=== PATIENT | male | born 1935 | race Caucasian/White ===

== ENCOUNTER 2018-03-15 13:50 | Observation (INO) ==
--- NOTE | 2018-03-15 14:09 | Emergency Department Note ---
Disposition Clinical Impression: Confusion Fall Qualifiers: Encounter type: initial encounter Qualified Code(s): W19.XXXA - Unspecified fall, initial encounter Dementia Qualifiers: Dementia type: unspecified type Dementia behavioral disturbance: without behavioral disturbance Qualified Code(s): F03.90 - Unspecified dementia without behavioral disturbance Disposition: Admitted As Inpatient Condition: Fair Referrals: Kenya Barber FAMILY RESOURCE MANAGEMENT SPECIALIST [Primary Care Provider] - Forms: ED Satisfaction Letter Time of Disposition: 15:50 Fall HPI - General Chief Complaint: ED Fall Stated Complaint: "fell,head injury on coumadin, sent from pcp" Time Seen by Provider: 03/15/18 13:55 Source: patient, family Mode of arrival: ambulatory Limitations: altered mental status Nursing Notes Reviewed: Yes Vital Signs Reviewed: Yes - History of Present Illness HPI Narrative: 82-year-old male with history of Parkinson's, dementia anticoagulated due to history of blood clots presents for evaluation of fall, head injury and confusion. Patient's history is provided via the at bedside. states the patient had an unwitnessed fall around midmorning around 9:30. States that the patient was found in the laundry room. Patient was up at that time but agent did strike his head. Patient's time of provided history given his dementia. states the patient has been increasingly confused over the past 24 hours prior to the fall. States that the patient has been also having hallucinations. states that the patient presumably hit his head but has not been complaining of any specific complaints. Patient also has not had any episodes of emesis. Patient's states she does live at home alone with him is the primary caregiver. states that the patient has had recent change in medications which includes introduction of Cymbalta over the weekend. Denies history of heart attacks, congestive heart failure strokes. - Related Data Home Medications Medication Instructions Recorded Confirmed Carbidopa/Levodopa 25/100 [Sinemet 1 tab PO BID 03/15/18 03/15/18 25/100] Carbidopa/Levodopa 1.5 tab PO 1400 03/15/18 03/15/18 [Carbidopa-Levodopa 25-100 Tab] DULoxetine [Cymbalta] 30 mg PO BID 03/15/18 03/15/18 Donepezil [Aricept] 10 mg PO HS 03/15/18 03/15/18 Finasteride [Proscar] 5 mg PO DAILY 03/15/18 03/15/18 PHENobarbital [Phenobarbital] 32.4 mg PO BID 03/15/18 03/15/18 Tamsulosin HCl [Flomax] 0.4 mg PO DAILY 03/15/18 03/15/18 Warfarin [Coumadin] 5 mg PO SUMOTUWETHFR 03/15/18 03/15/18 Warfarin [Coumadin] 7.5 mg PO SA 03/15/18 03/15/18 Allergies Allergy/AdvReac Type Severity Reaction Status Date / Time No Known Allergies Allergy Verified 07/31/17 17:40 Limitations: ROS unobtainable due to patients medical condition Fall PMH - Past Medical History Medical history: Reports: DVT, dementia, seizures, other Psychiatric history: Reports: no psych history - Social History Smoking Status: Never smoker Alcohol use: Reports: none Drug use: Reports: none Physical Exam - General Limitations: altered mental status, physical limitation General appearance: alert, in no apparent distress - Head Head exam: atraumatic, normocephalic, normal inspection - Eye Eye exam: Present: normal appearance, PERRL, EOMI - ENT ENT exam: normal exam - Neck Neck exam: Present: normal inspection. Absent: tenderness - Chest Chest inspection: Present: normal inspection, symmetric chest wall rise - Respiratory Respiratory exam: Present: normal lung sounds bilaterally. Absent: prolonged expiratory phase - Cardiovascular Cardiovascular exam: Present: regular rate, normal rhythm. Absent: systolic murmur - Abdominal Exam Abdominal exam: Present: soft, Non-Tender - Extremities Exam Extremities exam: Present: normal inspection. Absent: pedal edema - Back Exam Back exam: Present: normal inspection, full ROM. Absent: tenderness - Neurological Exam Neurological exam: Present: alert, CN II-XII intact. Absent: oriented X3 - Expanded Neurological Exam Motor strength - LUE: 5/5 Motor strength - RUE: 5/5 Motor strength - LLE: 5/5 Motor strength - RLE: 5/5 Coma Scale Eye Opening: Spontaneous Coma Scale Motor Response: Obeys Commands Coma Scale Verbal Response: Confused Coma Scale Total: 14 - Skin Skin exam: Present: warm, dry, intact, normal color Course Course Narrative: Patient seen and examined. Will get a stat CT of the head and cervical spine. Patient also had an INR. This morning which was 2.8. Will repeat those labs including CBC, lites lites and a UA. Patient also get a chest x-ray troponin. Given the patient's worsening confusion and the history provided with patient's been the primary caregiver not able to care for the patient with worsening dementia, confusion or recurrent falls anticoagulated patient will likely require admission. - Reevaluation(s) Reevaluation #1: Patient seen and examined. Patient's mental status is unchanged. Discussed plan of care with the . Given the concerns of fall anticoagulated with worsening dementia and confusion with no significant primary support at home the being the primary caregiver patient will be admitted to the hospital service. Time: 16:04 Vital Signs Temperature 98.3 F 03/15/18 13:53 Pulse Rate 87 03/15/18 13:53 Respiratory Rate 18 03/15/18 13:53 Blood Pressure 137/83 03/15/18 13:53 O2 Sat by Pulse Oximetry 92 03/15/18 13:53 Temperature 98.3 F 03/15/18 14:00 Pulse Rate 51 03/15/18 14:55 Respiratory Rate 18 03/15/18 14:55 Blood Pressure 145/83 03/15/18 14:55 O2 Sat by Pulse Oximetry 97 03/15/18 14:55 Oxygen Delivery Oxygen Delivery Room Air Fall - MDM Narrative Medical decision making narrative: Patient presented for concerns of a fall on Coumadin. at bedside provided the history as the patient does have history of dementia. Patient review systems is not able to be obtained. states that the patient had an unwitnessed fall. states patient has been increasingly confused over the past 24 hours with hallucinations. is concerned about the patient's fall risk as well as appropriate care at home without any assistance. Patient had EKG chest x-ray as well as basic labs. Patient also had a stat head CT and cervical spine CT which showed no acute abnormalities. Given the patient's history of anticoagulation with worsening confusion the patient will be admitted to the hospital service. - Lab Data Lab results reviewed: Yes I reviewed the patient's lab results. Result diagrams: 03/15/18 14:15 03/15/18 14:15 Lab Results 03/15/18 03/15/18 03/15/18 Range/Units 14:05 14:15 14:15 WBC 5.3 (4.3-11.1) K/mcL RBC 4.79 (4.19-5.50) M/mcL Hgb 15.5 (12.9-16.9) g/dL Hct 43.8 (37.5-50.1) % MCV 91.4 (83.0-100.0) fL MCH 32.4 (28.0-33.3) pg MCHC 35.4 (31.6-35.5) g/dL RDW 12.6 (11.5-14.5) % Plt Count 185 (140-400) K/mcL MPV 9.0 L (9.4-12.4) fL Immature Gran % 0.2 (0-4) % Seg Neutrophils % 57.6 % Lymphocytes % 29.5 % Monocytes % 9.5 % Eosinophils % 2.1 % Basophils % 1.1 % Neutrophils # 3.0 (1.6-8.9) K/mcL Lymphocytes # 1.6 (0.6-4.6) K/mcL Monocytes # 0.5 (0.0-1.3) K/mcL Eosinophils # 0.1 (0.0-0.6) K/mcL Basophils # 0.1 (0.0-0.2) K/mcL PT 32.4 H (9.4-12.1) Seconds INR 2.9 Sodium 137 (136-145) mEq/L Potassium 4.1 (3.5-5.1) mEq/L Chloride 106 (98-107) mEq/L Carbon Dioxide 26 (23-29) mEq/L BUN 16 (8-23) mg/dL Creatinine 1.13 (0.70-1.30) mg/dL Est GFR ( Amer) > 60 (> 60) Est GFR (Non-Af Amer) > 60 (> 60) BUN/Creatinine Ratio 14 (6-26) Glucose 92 (70-105) mg/dL Calculated Osmolality 285 (280-300) Calcium 9.7 (8.6-10.3) mg/dL Troponin I < 0.03 (< 0.04) ng/mL Urine Color (Yellow) Urine Clarity (Clear) Urine pH (5.0-8.0) pH Units Ur Specific [place] (1.010-1.025) Urine Protein (Neg-Trace) mg/dL Urine Glucose (UA) (Normal) mg/dL Urine Ketones (Negative) mg/dL Urine Blood (Negative) Urine Nitrite (Negative) Urine Bilirubin (Negative) Urine Urobilinogen (Normal) mg/dL Ur Leukocyte Esterase (Negative) 03/15/18 Range/Units 14:55 WBC (4.3-11.1) K/mcL RBC (4.19-5.50) M/mcL Hgb (12.9-16.9) g/dL Hct (37.5-50.1) % MCV (83.0-100.0) fL MCH (28.0-33.3) pg MCHC (31.6-35.5) g/dL RDW (11.5-14.5) % Plt Count (140-400) K/mcL MPV (9.4-12.4) fL Immature Gran % (0-4) % Seg Neutrophils % % Lymphocytes % % Monocytes % % Eosinophils % % Basophils % % Neutrophils # (1.6-8.9) K/mcL Lymphocytes # (0.6-4.6) K/mcL Monocytes # (0.0-1.3) K/mcL Eosinophils # (0.0-0.6) K/mcL Basophils # (0.0-0.2) K/mcL PT (9.4-12.1) Seconds INR Sodium (136-145) mEq/L Potassium (3.5-5.1) mEq/L Chloride (98-107) mEq/L Carbon Dioxide (23-29) mEq/L BUN (8-23) mg/dL Creatinine (0.70-1.30) mg/dL Est GFR ( Amer) (> 60) Est GFR (Non-Af Amer) (> 60) BUN/Creatinine Ratio (6-26) Glucose (70-105) mg/dL Calculated Osmolality (280-300) Calcium (8.6-10.3) mg/dL Troponin I (< 0.04) ng/mL Urine Color Yellow (Yellow) Urine Clarity Clear (Clear) Urine pH 5.5 (5.0-8.0) pH Units Ur Specific [place] 1.020 (1.010-1.025) Urine Protein Negative (Neg-Trace) mg/dL Urine Glucose (UA) Normal (Normal) mg/dL Urine Ketones Negative (Negative) mg/dL Urine Blood Negative (Negative) Urine Nitrite Negative (Negative) Urine Bilirubin Negative (Negative) Urine Urobilinogen Normal (Normal) mg/dL Ur Leukocyte Esterase Negative (Negative) - Radiology Data Radiology results reviewed: Yes I reviewed the patient's radiology results. Cervical Spine CT 03/15/18 14:04 IMPRESSION: No acute abnormality of the cervical spine. D/ / Mian Nunes MD / Mian Nunes MD Interpreting Provider: Mian Nunes MD Head CT 03/15/18 14:04 IMPRESSION: Stable CT brain with no acute intracranial abnormality and chronic ischemic/senescent changes as described. D/ / Elke Cuadra MD / Elke Cuadra MD Interpreting Provider: Elke Cuadra MD Chest X-Ray 03/15/18 14:05 IMPRESSION: Stable right middle lobe partially calcified opacity, likely due to scarring from prior infection/inflammation. No acute cardiopulmonary disease. D/ / Rich Bassett MD / Rich Bassett MD Interpreting Provider: Rich Bassett MD - EKG Data EKG attestation: Yes I reviewed and interpreted this EKG. EKG shows normal: sinus rhythm Rate: bradycardia Rhythm: NSR [place]/QRS: normal T wave inversions noted in: aVR Interpretation: no acute changes, nonspecific ST-T wave changes S.B.A.RPramod - S.B.ALee Situation: Demographics Background: Presenting Complaint Assessment: Vital Signs, Course and respsone to treatment, Patient/Family Expectation Recommendation: Barrier(s) to disposition, Recommendation based on pending studies, treatments, or consults S.B.ALee Report Given to: Dr. Beatriz Erwin Time: 16:04
--- NOTE | 2018-03-15 14:21 | Emergency Department Note ---
Disposition Clinical Impression: Confusion, Dementia Fall Qualifiers: Encounter type: initial encounter Qualified Code(s): W19.XXXA - Unspecified fall, initial encounter Disposition: Admitted As Inpatient Condition: Fair General Adult HPI - General Chief complaint: ED Fall Stated complaint: "fell,head injury on coumadin, sent from pcp" Time Seen by Provider: 03/15/18 13:55 Source: patient, family Mode of arrival: ambulatory Limitations: altered mental status, physical limitation - History of Present Illness Pain Scale: 0 - Related Data Home Medications Medication Instructions Recorded Confirmed Carbidopa/Levodopa 25/100 [Sinemet 1 tab PO BID 03/15/18 03/15/18 25/100] Carbidopa/Levodopa 1.5 tab PO 1400 03/15/18 03/15/18 [Carbidopa-Levodopa 25-100 Tab] DULoxetine [Cymbalta] 30 mg PO BID 03/15/18 03/15/18 Donepezil [Aricept] 10 mg PO HS 03/15/18 03/15/18 Finasteride [Proscar] 5 mg PO DAILY 03/15/18 03/15/18 PHENobarbital [Phenobarbital] 32.4 mg PO BID 03/15/18 03/15/18 Tamsulosin HCl [Flomax] 0.4 mg PO DAILY 03/15/18 03/15/18 Warfarin [Coumadin] 5 mg PO SUMOTUWETHFR 03/15/18 03/15/18 Warfarin [Coumadin] 7.5 mg PO SA 03/15/18 03/15/18 Allergies Allergy/AdvReac Type Severity Reaction Status Date / Time No Known Allergies Allergy Verified 07/31/17 17:40 Past Medical History - Past Medical History Medical history: Reports: DVT, dementia, seizures, other Psychiatric history: Reports: no psych history - Social History Smoking Status: Never smoker Smokeless Tobacco Status: No Alcohol use: Reports: none Drug use: Reports: none Physical Exam - General Limitations: altered mental status, physical limitation General appearance: alert, in no apparent distress Course Vital Signs Temperature 98.3 F 03/15/18 13:53 Pulse Rate 87 03/15/18 13:53 Respiratory Rate 18 03/15/18 13:53 Blood Pressure 137/83 03/15/18 13:53 O2 Sat by Pulse Oximetry 92 03/15/18 13:53 Temperature 97.5 F L 03/16/18 07:12 Pulse Rate 50 03/16/18 07:12 Respiratory Rate 18 03/16/18 07:12 Blood Pressure 146/92 03/16/18 07:12 O2 Sat by Pulse Oximetry 97 03/16/18 07:12 Oxygen Delivery Oxygen Delivery Room Air Medical Decision Making - Lab Data Result diagrams: 03/15/18 14:15 03/15/18 14:15 Lab Results 03/15/18 03/15/18 03/15/18 Range/Units 14:05 14:15 14:15 WBC 5.3 (4.3-11.1) K/mcL RBC 4.79 (4.19-5.50) M/mcL Hgb 15.5 (12.9-16.9) g/dL Hct 43.8 (37.5-50.1) % MCV 91.4 (83.0-100.0) fL MCH 32.4 (28.0-33.3) pg MCHC 35.4 (31.6-35.5) g/dL RDW 12.6 (11.5-14.5) % Plt Count 185 (140-400) K/mcL MPV 9.0 L (9.4-12.4) fL Immature Gran % 0.2 (0-4) % Seg Neutrophils % 57.6 % Lymphocytes % 29.5 % Monocytes % 9.5 % Eosinophils % 2.1 % Basophils % 1.1 % Neutrophils # 3.0 (1.6-8.9) K/mcL Lymphocytes # 1.6 (0.6-4.6) K/mcL Monocytes # 0.5 (0.0-1.3) K/mcL Eosinophils # 0.1 (0.0-0.6) K/mcL Basophils # 0.1 (0.0-0.2) K/mcL PT 32.4 H (9.4-12.1) Seconds INR 2.9 Sodium 137 (136-145) mEq/L Potassium 4.1 (3.5-5.1) mEq/L Chloride 106 (98-107) mEq/L Carbon Dioxide 26 (23-29) mEq/L BUN 16 (8-23) mg/dL Creatinine 1.13 (0.70-1.30) mg/dL Est GFR ( Amer) > 60 (> 60) Est GFR (Non-Af Amer) > 60 (> 60) BUN/Creatinine Ratio 14 (6-26) Glucose 92 (70-105) mg/dL Calculated Osmolality 285 (280-300) Calcium 9.7 (8.6-10.3) mg/dL Troponin I < 0.03 (< 0.04) ng/mL Urine Color (Yellow) Urine Clarity (Clear) Urine pH (5.0-8.0) pH Units Ur Specific [place] (1.010-1.025) Urine Protein (Neg-Trace) mg/dL Urine Glucose (UA) (Normal) mg/dL Urine Ketones (Negative) mg/dL Urine Blood (Negative) Urine Nitrite (Negative) Urine Bilirubin (Negative) Urine Urobilinogen (Normal) mg/dL Ur Leukocyte Esterase (Negative) 03/15/18 Range/Units 14:55 WBC (4.3-11.1) K/mcL RBC (4.19-5.50) M/mcL Hgb (12.9-16.9) g/dL Hct (37.5-50.1) % MCV (83.0-100.0) fL MCH (28.0-33.3) pg MCHC (31.6-35.5) g/dL RDW (11.5-14.5) % Plt Count (140-400) K/mcL MPV (9.4-12.4) fL Immature Gran % (0-4) % Seg Neutrophils % % Lymphocytes % % Monocytes % % Eosinophils % % Basophils % % Neutrophils # (1.6-8.9) K/mcL Lymphocytes # (0.6-4.6) K/mcL Monocytes # (0.0-1.3) K/mcL Eosinophils # (0.0-0.6) K/mcL Basophils # (0.0-0.2) K/mcL PT (9.4-12.1) Seconds INR Sodium (136-145) mEq/L Potassium (3.5-5.1) mEq/L Chloride (98-107) mEq/L Carbon Dioxide (23-29) mEq/L BUN (8-23) mg/dL Creatinine (0.70-1.30) mg/dL Est GFR ( Amer) (> 60) Est GFR (Non-Af Amer) (> 60) BUN/Creatinine Ratio (6-26) Glucose (70-105) mg/dL Calculated Osmolality (280-300) Calcium (8.6-10.3) mg/dL Troponin I (< 0.04) ng/mL Urine Color Yellow (Yellow) Urine Clarity Clear (Clear) Urine pH 5.5 (5.0-8.0) pH Units Ur Specific [place] 1.020 (1.010-1.025) Urine Protein Negative (Neg-Trace) mg/dL Urine Glucose (UA) Normal (Normal) mg/dL Urine Ketones Negative (Negative) mg/dL Urine Blood Negative (Negative) Urine Nitrite Negative (Negative) Urine Bilirubin Negative (Negative) Urine Urobilinogen Normal (Normal) mg/dL Ur Leukocyte Esterase Negative (Negative) Attestation Statement - Attestation Attestation: I examined this patient and my medical decision-making was reviewed with the HOME SALES CONSULTANT/PA/Advanced Practice Nurse/Resident Physician. I agree with the documented findings, disposition and treatment plan as described except to the extent set forth below. I did see the patient is spoke with him and his and is resting comfortably in the cart. Was found on the ground, he is anticoagulated with INR 2.8 as of this morning. Head CT is pending. The patient does have significant dementia. He does not know the year and when I asked him who was standing with him he said that it was his mother and fact it was his 1331 I did review the EKG shows sinus bradycardia with a rate of 51 without acute ischemic change
[2018-03-15 15:14] LABS: Basophils # 0.1 K/mcL (0.0-0.2); Basophils % 1.1 %; Eosinophils # 0.1 K/mcL (0.0-0.6); Eosinophils % 2.1 %; Hematocrit 43.8 % (37.5-50.1); Hemoglobin 15.5 g/dL (12.9-16.9); Immature Granulocytes % 0.2 % (0-4); Lymphocytes # 1.6 K/mcL (0.6-4.6); Lymphocytes % 29.5 %; Mean Corpuscular HGB Conc 35.4 g/dL (31.6-35.5); Mean Corpuscular Hemoglobin 32.4 pg (28.0-33.3); Mean Corpuscular Volume 91.4 fL (83.0-100.0); Monocytes # 0.5 K/mcL (0.0-1.3); Monocytes % 9.5 %; Platelet Count 185 K/mcL (140-400); Red Blood Count 4.79 M/mcL (4.19-5.50); Red Cell Distribution Width 12.6 % (11.5-14.5); Segmented Neutrophils % 57.6 %
[2018-03-15 15:21] LABS: INR 2.9; Prothrombin Time 32.4 Seconds (9.4-12.1)
[2018-03-15 15:23] LABS: Bilirubin,Urine Negative (Negative); Blood,Urine Negative (Negative); Clarity,Urine Clear (Clear); Color,Urine Yellow (Yellow); Glucose,Urine (UA) Normal (Normal); Ketones,Urine Negative (Negative); Leukocyte Esterase,Urine Negative (Negative); Nitrite,Urine Negative (Negative); PH,Urine 5.5 pH Units (5.0-8.0); Protein,Urine Negative (Neg-Trace); Urobilinogen,Urine Normal (Normal)
[2018-03-15 15:34] LABS: BUN/Creatinine Ratio 14 (6-26); Blood Urea Nitrogen 16 mg/dL (8-23); Calcium 9.7 mg/dL (8.6-10.3); Carbon Dioxide 26 mEq/L (23-29); Chloride 106 mEq/L (98-107); Glucose 92 mg/dL (70-105); Osmolality,Calculated 285 (280-300); Potassium 4.1 mEq/L (3.5-5.1); Sodium 137 mEq/L (136-145); Troponin I < 0.03 ng/mL (< 0.04); eGFR For African Americans > 60 (> 60); eGFR For Non-African Americans > 60 (> 60)
[2018-03-15] MEDS ORDERED: Acetaminophen 325 MG TABLET PO PRN (16:35)
[2018-03-15] MEDS ORDERED: Naloxone 0.4 MG/ML INJ IVP PRN (16:35)
--- NOTE | 2018-03-15 16:40 | Internal Med History&Physical ---
Date of Encounter: 03/15/18 Time of Encounter: 16:38 Internal Medicine - H&P: HPI Chief complaint: Confusion Admitted From: Emergency Dept Plans for Post Hospital Care: Home History of present illness: Mr. 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 The patient was at his primary care's office for evaluation after fall this morning which was unwitnessed. She believes that he possibly lost his balance and fell to the floor hitting his forehead. No loss of consciousness. She says for the last 24 hours he has showed signs of confusion however she states that he baseline is only alert and oriented 1. He was started on Cymbalta last week by Dr. Red. He started taking the medication 5 days ago. No fevers or chills reported. No other complaints. She took him to his primary care physician who wanted to get him evaluated with a CT at some point. The patient ended up in our ED where he had workup that was unremarkable in terms of labs. CT head showed no acute findings. CT cervical spine was with nothing acute. Due to the confusion and recent fall, the ED did not feel comfortable sending the patient back home. I spoke to his who would like him to get evaluated by physical therapy. She is not opposed to the idea of placement however she would prefer him to be home. The patient is cane dependent. Past Med Surg Social Fam HX - Past Medical History Medical history: DVT, dementia, seizures, other Additional medical history: no seizures since 1977 Psychiatric history: no psych history - Past Surgical History Additional surgical history: knee sx. back sx x3 - Social History Smoking Status: Never smoker Smokeless Tobacco Status: No Alcohol use: none Drug use: none Internal Medicine - H&P: Meds Carbidopa/Levodopa 25/100 [Sinemet 25/100] 1 tab PO BID 03/15/18 [History] Carbidopa/Levodopa [Carbidopa-Levodopa 25-100 Tab] 1.5 tab PO 1400 03/15/18 [ History] DULoxetine [Cymbalta] 30 mg PO BID 03/15/18 [History] Donepezil [Aricept] 10 mg PO HS 03/15/18 [History] Finasteride [Proscar] 5 mg PO DAILY 03/15/18 [History] PHENobarbital [Phenobarbital] 32.4 mg PO BID 03/15/18 [History] Tamsulosin HCl [Flomax] 0.4 mg PO DAILY 03/15/18 [History] Warfarin [Coumadin] 5 mg PO SUMOTUWETHFR 03/15/18 [History] Warfarin [Coumadin] 7.5 mg PO SA 03/15/18 [History] 3 Allergy/AdvReac Type Severity Reaction Status Date / Time No Known Allergies Allergy Verified 07/31/17 17:40 ROS unobtainable: due to mental status All Systems PM: A 10-system review of systems was performed and is negative for pertinent findings except as documented above in the HPI. - Constitutional Vitals: Temp Pulse Resp BP Pulse Ox 98.3 F 51 18 145/83 97 03/15/18 14:00 03/15/18 14:55 03/15/18 14:55 03/15/18 14:55 03/15/18 14:55 Exam: GEN: NAD, alert and oriented 1, only to self. HEENT: AT, NC, No cyanosis, oral mucosa is moist, No JVD Lymphatics: No lymphadenoapthy Eyes: Extrocular muscles intact, anicteric CVS:RRR. S1, S2, No m/r/g RESP: CTAB ABD: Soft, NT, ND, +BS EXT: No edema, No rashes, 2+ DP NEURO: Resting tremors, Nonfocal, CN II-XII intact, No focal motor or sensory deficits Psych: Cooperative, Not anxious or depressed Internal Med - H&P Results - Labs CBC & Chem 7: 03/15/18 14:15 03/15/18 14:15 Labs: Short CBC 03/15/18 Range/Units 14:15 WBC 5.3 (4.3-11.1) K/mcL Hgb 15.5 (12.9-16.9) g/dL Hct 43.8 (37.5-50.1) % Plt Count 185 (140-400) K/mcL Neutrophils # 3.0 (1.6-8.9) K/mcL BMP 03/15/18 14:15 Sodium 137 Potassium 4.1 Chloride 106 Carbon Dioxide 26 BUN 16 Creatinine 1.13 Glucose 92 Calcium 9.7 Cardiac Enzymes 03/15/18 Range/Units 14:15 Troponin I < 0.03 (< 0.04) ng/mL Urine 03/15/18 Range/Units 14:55 Urine Color Yellow (Yellow) Urine Clarity Clear (Clear) Urine pH 5.5 (5.0-8.0) pH Units Ur Specific [place] 1.020 (1.010-1.025) Urine Protein Negative (Neg-Trace) mg/dL Urine Glucose (UA) Normal (Normal) mg/dL - Impressions ITS Impressions Cervical Spine CT 03/15/18 14:04 IMPRESSION: No acute abnormality of the cervical spine. D/ / Mian Nunes MD / Mian Nunes MD Interpreting Provider: Mian Nunes MD Head CT 03/15/18 14:04 IMPRESSION: Stable CT brain with no acute intracranial abnormality and chronic ischemic/senescent changes as described. D/ / Elke Cuadra MD / Elke Cuadra MD Interpreting Provider: Elke Cuadra MD Chest X-Ray 03/15/18 14:05 IMPRESSION: Stable right middle lobe partially calcified opacity, likely due to scarring from prior infection/inflammation. No acute cardiopulmonary disease. D/ / Rich Bassett MD / Rich Bassett MD Interpreting Provider: Rich Bassett MD - Assessment and plan (1) Confusion Current Visit: Yes Status: Acute Assessment and plan: I think this is just worsening dementia with its Parkinson's dementia or Alzheimer's dementia. The patient recently started on Cymbalta which could be contributing however the states that he has been confused and worsening for the last 5 years or so. He at times does not recognize her and he demonstrated that while I was in the room. He thought his was his mother. We will check TSH and B12 for now. PTOT evaluation. (2) Fall Current Visit: Yes Status: Acute Assessment and plan: Unwitnessed but likely to be due to unbalanced gait from his Parkinson's. CT head no acute findings. We will get PTOT to see the patient. Monitor him neurologically while hospitalized. His is not sure if she would like him to be placed however she will await PT and OT's evaluation and recommendations. She would prefer if he comes back home. Qualifiers: Encounter type: initial encounter Qualified Code(s): W19.XXXA - Unspecified fall, initial encounter (3) H/O deep venous thrombosis Current Visit: Yes Status: Acute Assessment and plan: On Coumadin (4) Depression Current Visit: Yes Status: Acute Assessment and plan: Continue Cymbalta Qualifiers: Depression Type: unspecified Qualified Code(s): F32.9 - Major depressive disorder, single episode, unspecified (5) Parkinson disease Current Visit: Yes Status: Acute Assessment and plan: Continue Sinemet. Follows up with Dr. Red in the outpatient setting. (6) Dementia Current Visit: Yes Status: Acute Qualifiers: Dementia type: unspecified type Dementia behavioral disturbance: without behavioral disturbance Qualified Code(s): F03.90 - Unspecified dementia without behavioral disturbance (7) DVT prophylaxis Current Visit: Yes Status: Acute Assessment and plan: On Coumadin - Time Spent With Patient Total time spent is greater than 50% in coordination of care (as documented) at patient's floor/unit and/or counseling patient:
[2018-03-15] MEDS ORDERED: *HR* Warfarin 5 MG TABLET PO ONE (18:00)
[2018-03-15] MEDS ORDERED: Warfarin perPT PO PRN (18:00)
[2018-03-15] MEDS: PHENobarbital 32.4 MG TABLET PO SCH (20:10)
[2018-03-15] MEDS: Carbidopa/Levodopa 25/100 TABLET PO SCH (20:10)
--- NOTE | 2018-03-15 22:07 | Event Note ---
Date of Encounter: 03/15/18 Time of Encounter: 21:59 Patient was reported as having left sided weakness and left facial droop. The patient was called and apparently stated his left leg is weak. On assessment I noted the patient has what appears to be a droop to the left side of face however, when he smiles there is no notable droop. Neuro check did show some weakness in the left leg, which appears to be his baseline. Patient pleasant, and confused. No s/s of distress.
[2018-03-16 06:13] LABS: INR 2.8; Prothrombin Time 31.7 Seconds (9.4-12.1)
[2018-03-16] MEDS: Carbidopa/Levodopa 25/100 TABLET PO SCH ×3 (08:56→20:33)
[2018-03-16] MEDS: Finasteride 5 MG TABLET PO SCH (08:56)
[2018-03-16] MEDS: PHENobarbital 32.4 MG TABLET PO SCH ×2 (08:56→20:33)
--- NOTE | 2018-03-16 11:40 | Internal Med Progress Note ---
Date of Encounter: 03/16/18 Time of Encounter: 11:37 - Assessment and plan (1) Confusion Current Visit: Yes Status: Acute Assessment and plan: Patient presents with increasing confusion above baseline as well as falls I believe this is due to worsening dementia likely Parkinson's dementia or Alzheimer's dementia sees [place] [facility] outpatient, recently started on Cymbalta, unclear if this is worsening dementia At baseline patient alert to self, no family present at bedside this morning No metabolic abnormalities noted, troponin negative, vitamin B12 395 WNL, TSH 1.270 WNL Urinalysis does not appear to indicate UTI ECG sinus bradycardia CT of head and C-spine negative for acute intracranial or C-spine abnormalities CXR negative for acute pulmonary abnormalities PT/OT-recommend SNF at discharge Patient appears to be very confused this morning and is unable to participate in examination (2) Weakness generalized Current Visit: Yes Status: Acute Assessment and plan: Generalized weakness secondary to Parkinson's See further assessment and plan above (3) Fall Current Visit: Yes Status: Acute Assessment and plan: Unwitnessed but likely to be due to unbalanced gait from his Parkinson's CT head and C-spine showing no acute findings PT/OT-recommend SNF at discharge; D/W this afternoon when she is available Nonfocal neurological exam See above for further assessment and plan Qualifiers: Encounter type: initial encounter Qualified Code(s): W19.XXXA - Unspecified fall, initial encounter (4) Dementia Current Visit: Yes Status: Acute Assessment and plan: Continue dementia medications Qualifiers: Dementia type: unspecified type Dementia behavioral disturbance: without behavioral disturbance Qualified Code(s): F03.90 - Unspecified dementia without behavioral disturbance (5) H/O deep venous thrombosis Current Visit: Yes Status: Acute Assessment and plan: coumadin (6) Depression Current Visit: Yes Status: Acute Assessment and plan: H/O depression, taking Cymbalta, continue Qualifiers: Depression Type: unspecified Qualified Code(s): F32.9 - Major depressive disorder, single episode, unspecified (7) Parkinson disease Current Visit: Yes Status: Acute Assessment and plan: H/O parkinsons disease, continue Sinemet Follow up with Dr. Red in the outpatient setting Parkinson contributing to weakness and falls see above (8) DVT prophylaxis Current Visit: Yes Status: Acute Assessment and plan: Continue Coumadin - Time Spent With Patient Total time spent is greater than 50% in coordination of care (as documented) at patient's floor/unit and/or counseling patient: 25 - 35 minutes - Subjective Interval history: No acute changes overnight. Remains confused. Denies any complaints. No family at bedside, history of advanced dementia - Constitutional Vitals: Temp Pulse Resp BP Pulse Ox 97.5 F L 50 18 146/92 97 03/16/18 07:12 03/16/18 07:12 03/16/18 07:12 03/16/18 07:12 03/16/18 07:12 General appearance: Present: A&O X 1 - Head Head exam: Present: atraumatic, normocephalic - Eye Eye exam: Present: PERRL, conjuntiva pink, sclera anicteric Pupils: Present: PERRL - Neck Neck exam general surgery: Present: supple, trachea midline. Absent: lymphadenopathy - Respiratory Respiratory exam: Present: CTAB. Absent: accessory muscle use, rales, rhonchi, wheezes - Cardiovascular Cardiovascular exam: Present: RRR, +S1, +S2. Absent: diastolic murmur, gallop, rubs, systolic murmur - GI/Abdominal GI/Abdominal exam: Present: normal bowel sounds, soft, no peritoneal signs. Absent: distended, tenderness - Extremities Exam Extremities exam: Present: warm, radial pulses palpable and symmetrical. Absent : calf tenderness, cyanotic, pedal edema - Neurological Exam Neurological exam: Present: CN II-XII intact, oriented X3, no focal deficits. Absent: pronater drift, facial droop, speech deficit - Skin Skin exam: Present: dry, intact Internal Medicine: Result - Labs CBC & Chem 7: 03/15/18 14:15 03/15/18 14:15 - ABG Interpretation ABG results: PT/INR, D-dimer PT 31.7 Seconds (9.4-12.1) H 03/16/18 05:52 Consult Discharge Plan - Plan Referrals: Kenya Barber CNP [Primary Care Provider] - 03/20/18 3:00 pm
[2018-03-16] MEDS ORDERED: *HR* Warfarin 5 MG TABLET PO ONE (18:00)
[2018-03-17] MEDS: PHENobarbital 32.4 MG TABLET PO SCH ×2 (07:54→21:09)
[2018-03-17] MEDS: Finasteride 5 MG TABLET PO SCH (07:54)
[2018-03-17] MEDS: Carbidopa/Levodopa 25/100 TABLET PO SCH ×3 (07:54→21:10)
--- NOTE | 2018-03-17 13:01 | Internal Med Progress Note ---
Date of Encounter: 03/17/18 Time of Encounter: 12:59 - Assessment and plan (1) Confusion Current Visit: Yes Status: Acute Assessment and plan: Admitted for increasing confusion above baseline as well as falls Confusion is better today, at bedside and reporting that his mental status has been waxing and waning This is likely to/2 worsening dementia likely Parkinson's dementia or Alzheimer' s dementia sees [place] [facility] outpatient, recently started on Cymbalta, unclear if this is worsening dementia Has a follow-up April 19 with neurology No metabolic abnormalities noted, troponin negative, vitamin B12 395 WNL, TSH 1.270 WNL Urinalysis does not appear to indicate UTI ECG sinus bradycardia CT of head and C-spine negative for acute intracranial or C-spine abnormalities CXR negative for acute pulmonary abnormalities PT/OT-recommend SNF at discharge- would like placement at [facility] (2) Weakness generalized Current Visit: Yes Status: Acute Assessment and plan: Generalized weakness secondary to Parkinson's See further assessment and plan above (3) Fall Current Visit: Yes Status: Acute Assessment and plan: Unwitnessed falls prior to admission, likely due to/2 unbalanced gait from his Parkinson's CT head and C-spine showing no acute findings PT/OT-recommend SNF at discharge; D/W who is in agreement's to discharge to SNF for rehabilitation Nonfocal neurological exam See above for further assessment and plan Qualifiers: Encounter type: initial encounter Qualified Code(s): W19.XXXA - Unspecified fall, initial encounter (4) Dementia Current Visit: Yes Status: Acute Assessment and plan: History of dementia, Continue dementia medications Qualifiers: Dementia type: unspecified type Dementia behavioral disturbance: without behavioral disturbance Qualified Code(s): F03.90 - Unspecified dementia without behavioral disturbance (5) H/O deep venous thrombosis Current Visit: Yes Status: Acute Assessment and plan: Taking coumadin (6) Depression Current Visit: Yes Status: Acute Assessment and plan: Continue Cymbalta Qualifiers: Depression Type: unspecified Qualified Code(s): F32.9 - Major depressive disorder, single episode, unspecified (7) Parkinson disease Current Visit: Yes Status: Acute Assessment and plan: H/O parkinsons disease, continue Sinemet Follow up with Dr. Red in the outpatient setting Parkinson contributing to weakness and falls see above (8) DVT prophylaxis Current Visit: Yes Status: Acute Assessment and plan: Continue Coumadin - Time Spent With Patient Total time spent is greater than 50% in coordination of care (as documented) at patient's floor/unit and/or counseling patient: - Subjective Interval history: No acute changes overnight. Remains confused but has h/o parkinson's with likely parkinson's dementia. Denies any complaints. No family at bedside, history of advanced dementia - Constitutional Vitals: Temp Pulse Resp BP Pulse Ox 97.6 F 66 17 117/69 96 03/17/18 12:03/17/18 12:03/17/18 12:03/17/18 12:03/17/18 12:09 General appearance: Present: A&O X 2 - Head Head exam: Present: atraumatic, normocephalic - Eye Eye exam: Present: PERRL, conjuntiva pink, sclera anicteric Pupils: Present: PERRL - Neck Neck exam general surgery: Present: supple, trachea midline. Absent: lymphadenopathy - Respiratory Respiratory exam: Present: CTAB. Absent: accessory muscle use, rales, rhonchi, wheezes - Cardiovascular Cardiovascular exam: Present: RRR, +S1, +S2. Absent: diastolic murmur, gallop, rubs, systolic murmur - GI/Abdominal GI/Abdominal exam: Present: normal bowel sounds, soft, no peritoneal signs. Absent: distended, tenderness - Extremities Exam Extremities exam: Present: normal capillary refill, normal inspection, warm, radial pulses palpable and symmetrical. Absent: calf tenderness, cyanotic, pedal edema - Neurological Exam Neurological exam: Present: altered, CN II-XII intact, oriented X3, no focal deficits. Absent: reflexes normal, pronater drift, facial droop, speech deficit Additional comments: Altered neurological exam, tremulousness bilateral upper extremities and to some extent lower extremities. History of Parkinson's - Skin Skin exam: Present: dry, intact Internal Medicine: Result - Labs CBC & Chem 7: 03/15/18 14:15 03/15/18 14:15 - ABG Interpretation ABG results: PT/INR, D-dimer PT 34.0 Seconds (9.4-12.1) H 03/17/18 01:35 Consult Discharge Plan - Plan Referrals: Sunil,Kenya Ramirez CNP [Primary Care Provider] - 03/20/18 3:00 pm
[2018-03-17] MEDS ORDERED: *HR* Warfarin 5 MG TABLET PO ONE (18:00)
[2018-03-18 05:14] LABS: Basophils # 0.1 K/mcL (0.0-0.2); Basophils % 0.9 %; Eosinophils # 0.2 K/mcL (0.0-0.6); Eosinophils % 2.6 %; Hematocrit 43.6 % (37.5-50.1); Hemoglobin 15.2 g/dL (12.9-16.9); Immature Granulocytes % 0.2 % (0-4); Lymphocytes # 2.1 K/mcL (0.6-4.6); Lymphocytes % 31.7 %; Mean Corpuscular HGB Conc 34.9 g/dL (31.6-35.5); Mean Corpuscular Hemoglobin 31.5 pg (28.0-33.3); Mean Corpuscular Volume 90.3 fL (83.0-100.0); Mean Platelet Volume 8.9 fL (9.4-12.4); Monocytes # 0.6 K/mcL (0.0-1.3); Monocytes % 8.4 %; Neutrophils # 3.7 K/mcL (1.6-8.9); Platelet Count 182 K/mcL (140-400); Red Blood Count 4.83 M/mcL (4.19-5.50); Red Cell Distribution Width 12.8 % (11.5-14.5); Segmented Neutrophils % 56.2 %
[2018-03-18 05:22] LABS: INR 3.1; Prothrombin Time 34.5 Seconds (9.4-12.1)
[2018-03-18 05:34] LABS: BUN/Creatinine Ratio 13 (6-26); Blood Urea Nitrogen 14 mg/dL (8-23); Carbon Dioxide 29 mEq/L (23-29); Chloride 104 mEq/L (98-107); Glucose 92 mg/dL (70-105); Osmolality,Calculated 284 (280-300); Potassium 3.8 mEq/L (3.5-5.1); Sodium 137 mEq/L (136-145); eGFR For African Americans > 60 (> 60); eGFR For Non-African Americans > 60 (> 60)
[2018-03-18] MEDS: PHENobarbital 32.4 MG TABLET PO SCH ×2 (08:01→20:23)
[2018-03-18] MEDS: Finasteride 5 MG TABLET PO SCH (08:02)
[2018-03-18] MEDS: Carbidopa/Levodopa 25/100 TABLET PO SCH ×3 (08:02→20:23)
--- NOTE | 2018-03-18 12:13 | Internal Med Progress Note ---
Date of Encounter: 03/18/18 Time of Encounter: 12:11 - Assessment and plan (1) Confusion Current Visit: Yes Status: Acute Assessment and plan: Admitted for increasing confusion above baseline as well as falls Confusion is better today, patient appears to be more alert and engaging today Able to answer simple questions in regards to his healthcare and situation reporting waxing and waning of bouts of confusion Confusion is likely 2/2 worsening dementia likely Parkinson's dementia sees [place] neurology outpatient, recently started on Cymbalta, continue this medication Has a follow-up April 19 with neurology No metabolic abnormalities noted, troponin negative, vitamin B12 395 WNL, TSH 1.270 WNL Urinalysis does not appear to indicate UTI ECG sinus bradycardia CT of head and C-spine negative for acute intracranial or C-spine abnormalities CXR negative for acute pulmonary abnormalities PT/OT-recommend SNF at discharge- would like placement at [facility]- awaiting approval. Patient and are wishing to only have a short-term inpatient rehabilitation stay. Upon discharge from inpatient rehabilitation they would prefer to have home health for any additional needs surgical services manager seeing in consultation. Thank you (2) Weakness generalized Current Visit: Yes Status: Acute Assessment and plan: Generalized weakness secondary to Parkinson's See further assessment and plan above (3) Fall Current Visit: Yes Status: Acute Assessment and plan: Unwitnessed falls prior to admission, likely due 2/2 unbalanced gait with Parkinson's disease CT head and C-spine showing no acute findings PT/OT working with patient throughout stay-recommendations are for discharge to SNF for rehabilitation This was D/W patient and were both in agreement however they are only agreeable to a short-term stay and would prefer to have home health services with PT/OT upon discharge from inpatient rehabilitation Nonfocal neurological exam See above for further assessment and plan Qualifiers: Encounter type: initial encounter Qualified Code(s): W19.XXXA - Unspecified fall, initial encounter (4) Dementia Current Visit: Yes Status: Acute Assessment and plan: History of dementia, Continue dementia medications Qualifiers: Dementia type: unspecified type Dementia behavioral disturbance: without behavioral disturbance Qualified Code(s): F03.90 - Unspecified dementia without behavioral disturbance (5) H/O deep venous thrombosis Current Visit: Yes Status: Acute Assessment and plan: Taking coumadin (6) Depression Current Visit: Yes Status: Acute Assessment and plan: has a history of depression Does not appear to be depressed during this stay Continue Cymbalta Qualifiers: Depression Type: unspecified Qualified Code(s): F32.9 - Major depressive disorder, single episode, unspecified (7) Parkinson disease Current Visit: Yes Status: Acute Assessment and plan: H/O parkinsons disease, continue Sinemet Follow up with Dr. Red in the outpatient setting Parkinson contributing to weakness and falls would benefit from short-term inpatient rehab stay May need home health with PT OT on discharge from rehabilitation facility see above (8) DVT prophylaxis Current Visit: Yes Status: Acute Assessment and plan: Cont Coumadin with PT to dose, therapeutic INR today - Time Spent With Patient Total time spent is greater than 50% in coordination of care (as documented) at patient's floor/unit and/or counseling patient: 25 - 35 minutes - Subjective Interval history: No acute changes overnight. Remains confused but has h/o parkinson's with likely parkinson's dementia, some degree of confusion at baseline. Denies any complaints at this time - Constitutional Vitals: Temp Pulse Resp BP Pulse Ox 97.6 F 67 17 110/68 91 03/18/18 11:38 03/18/18 11:38 03/18/18 11:38 03/18/18 11:38 03/18/18 11:38 General appearance: Present: A&O X 2 - Head Head exam: Present: atraumatic, normocephalic - Eye Eye exam: Present: EOMI, PERRL, conjuntiva pink, sclera anicteric Pupils: Present: PERRL - Neck Neck exam general surgery: Present: supple, trachea midline. Absent: lymphadenopathy - Respiratory Respiratory exam: Present: CTAB. Absent: accessory muscle use, rales, rhonchi, wheezes - Cardiovascular Cardiovascular exam: Present: RRR, +S1, +S2. Absent: diastolic murmur, gallop, rubs, systolic murmur - GI/Abdominal GI/Abdominal exam: Present: normal bowel sounds, soft, no peritoneal signs. Absent: distended, tenderness - Extremities Exam Extremities exam: Present: warm, radial pulses palpable and symmetrical. Absent : calf tenderness, cyanotic, pedal edema - Neurological Exam Neurological exam: Present: CN II-XII intact, oriented X3, no focal deficits, strengths equal and symetr throughout. Absent: pronater drift, facial droop, speech deficit Additional comments: Tremulousness noted, history of Parkinson's disease - Skin Skin exam: Present: dry, intact Internal Medicine: Result - Labs CBC & Chem 7: 03/18/18 04:56 03/18/18 04:56 Labs: Short CBC 03/18/18 Range/Units 04:56 WBC 6.5 (4.3-11.1) K/mcL Hgb 15.2 (12.9-16.9) g/dL Hct 43.6 (37.5-50.1) % Plt Count 182 (140-400) K/mcL Neutrophils # 3.7 (1.6-8.9) K/mcL BMP 03/18/18 04:56 Sodium 137 Potassium 3.8 Chloride 104 Carbon Dioxide 29 BUN 14 Creatinine 1.08 Glucose 92 Calcium 10.0 - ABG Interpretation ABG results: PT/INR, D-dimer PT 34.5 Seconds (9.4-12.1) H 03/18/18 04:56 Consult Discharge Plan - Plan Referrals: Kneya Barber CNP [Primary Care Provider] - 03/20/18 3:00 pm
[2018-03-18] MEDS ORDERED: *HR* Warfarin 4 MG TABLET PO ONE (18:00)
[2018-03-19 05:32] LABS: Basophils # 0.1 K/mcL (0.0-0.2); Basophils % 0.7 %; Eosinophils # 0.1 K/mcL (0.0-0.6); Eosinophils % 0.8 %; Hematocrit 39.6 % (37.5-50.1); Hemoglobin 13.9 g/dL (12.9-16.9); Immature Granulocytes % 0.3 % (0-4); Lymphocytes # 1.7 K/mcL (0.6-4.6); Lymphocytes % 22.4 %; Mean Corpuscular HGB Conc 35.1 g/dL (31.6-35.5); Mean Corpuscular Hemoglobin 31.3 pg (28.0-33.3); Mean Corpuscular Volume 89.2 fL (83.0-100.0); Mean Platelet Volume 9.1 fL (9.4-12.4); Monocytes # 0.6 K/mcL (0.0-1.3); Monocytes % 7.8 %; Neutrophils # 5.1 K/mcL (1.6-8.9); Platelet Count 178 K/mcL (140-400); Red Blood Count 4.44 M/mcL (4.19-5.50); Red Cell Distribution Width 12.8 % (11.5-14.5)
[2018-03-19 05:40] LABS: INR 2.7
[2018-03-19 05:54] LABS: BUN/Creatinine Ratio 12 (6-26); Blood Urea Nitrogen 12 mg/dL (8-23); Calcium 9.6 mg/dL (8.6-10.3); Carbon Dioxide 26 mEq/L (23-29); Chloride 106 mEq/L (98-107); Glucose 99 mg/dL (70-105); Osmolality,Calculated 284 (280-300); Potassium 3.6 mEq/L (3.5-5.1); Sodium 137 mEq/L (136-145); eGFR For African Americans > 60 (> 60); eGFR For Non-African Americans > 60 (> 60)
--- NOTE | 2018-03-19 06:40 | Electrocardiograph Report ---
[place] [facility] Test Date: 2018-03-15 Pat Name: Pratik Henning Department: [id number] Room: 3B52 Gender: M Ic Engineer: : [id number] Requested By: Jayme Aguilar Order Number: [id number] Reading MD: Ivan Allen Measurements Intervals [place] Rate: 51 P: 68 MS: 188 QRS: -37 QRSD: 105 T: 1 QT: 412 QTc: 390 Interpretive Statements SINUS BRADYCARDIA MARKED LEFT AXIS DEVIATION Electronically Signed On 03-19-2018 6:39:17 EDT by Ivan Allen
[2018-03-19] MEDS: Finasteride 5 MG TABLET PO SCH (09:25)
[2018-03-19] MEDS: PHENobarbital 32.4 MG TABLET PO SCH (09:25)
[2018-03-19] MEDS: Carbidopa/Levodopa 25/100 TABLET PO SCH ×2 (09:25→15:12)
--- NOTE | 2018-03-19 14:38 | Internal Med Progress Note ---
Date of Encounter: 03/19/18 Time of Encounter: 14:36 - Assessment and plan (1) Confusion Current Visit: Yes Status: Acute Assessment and plan: Admitted for increasing confusion above baseline as well as falls Confusion is better today, patient appears to be more alert and engaging today Able to answer simple questions in regards to his healthcare and situation reporting waxing and waning of bouts of confusion Confusion is likely 2/2 worsening dementia likely Parkinson's dementia sees [place] neurology outpatient, has f/u 10/2017 with neurology-recently started on Cymbalta, continue this medication vitamin B12 395 WNL, TSH 1.270 WNL Urinalysis does not appear to indicate UTI ECG sinus bradycardia CT of head and C-spine negative for acute intracranial or C-spine abnormalities CXR negative for acute pulmonary abnormalities PT/OT-recommend SNF at discharge- would like placement at [facility]- awaiting approval services account manager seeing in consultation. Thank you (2) Weakness generalized Current Visit: Yes Status: Acute Assessment and plan: Generalized weakness secondary to Parkinson's Improving today See further assessment and plan above (3) Fall Current Visit: Yes Status: Acute Assessment and plan: Unwitnessed falls prior to admission, likely due 2/2 unbalanced gait with Parkinson's disease, consider progression of disease as cause Has f/u with neurology- will evaluate in outpatient setting Neuro exam remains non-focal CT head and C-spine showing no acute findings PT/OT working with patient throughout stay-recommendations are for discharge to SNF for rehabilitation This was D/W patient and were both in agreement however they are only agreeable to a short-term stay Awaiting approval from [facility] Consider home health with PT/OT and nursing/aide assistance if unable to d/c to [facility] See above for further assessment and plan Qualifiers: Encounter type: initial encounter Qualified Code(s): W19.XXXA - Unspecified fall, initial encounter (4) Dementia Current Visit: Yes Status: Acute Assessment and plan: h/o dementia, Continue dementia medications Qualifiers: Dementia type: unspecified type Dementia behavioral disturbance: without behavioral disturbance Qualified Code(s): F03.90 - Unspecified dementia without behavioral disturbance (5) H/O deep venous thrombosis Current Visit: Yes Status: Acute Assessment and plan: Taking coumadin (6) Depression Current Visit: Yes Status: Acute Assessment and plan: has a history of depression denies depression currently Continue Cymbalta Qualifiers: Depression Type: unspecified Qualified Code(s): F32.9 - Major depressive disorder, single episode, unspecified (7) Parkinson disease Current Visit: Yes Status: Acute Assessment and plan: H/O parkinsons disease, continue Sinemet Follow up with Dr. Red in the outpatient setting Parkinson contributing to weakness and falls would benefit from short-term inpatient rehab stay see above (8) DVT prophylaxis Current Visit: Yes Status: Acute Assessment and plan: Cont Coumadin with PT to dose INR remains therapeutic today - Time Spent With Patient Total time spent is greater than 50% in coordination of care (as documented) at patient's floor/unit and/or counseling patient: - Subjective Interval history: No acute changes overnight. Confusion today but has h/o parkinson's with likely parkinson's dementia, with confusion at baseline. Denies any complaints at this time - Constitutional Vitals: Temp Pulse Resp BP Pulse Ox 98.2 F 75 15 129/76 97 03/19/18 10:57 03/19/18 10:57 03/19/18 10:57 03/19/18 10:57 03/19/18 10:57 General appearance: Present: A&O X 2 - Head Head exam: Present: atraumatic, normocephalic - Eye Eye exam: Present: PERRL, conjuntiva pink, sclera anicteric Pupils: Present: PERRL - Neck Neck exam general surgery: Present: supple, trachea midline. Absent: lymphadenopathy - Respiratory Respiratory exam: Present: CTAB. Absent: accessory muscle use, rales, rhonchi, wheezes - Cardiovascular Cardiovascular exam: Present: RRR, +S1, +S2. Absent: diastolic murmur, gallop, rubs, systolic murmur - GI/Abdominal GI/Abdominal exam: Present: normal bowel sounds, soft, no peritoneal signs. Absent: distended, tenderness - Extremities Exam Extremities exam: Present: warm, radial pulses palpable and symmetrical. Absent : calf tenderness, cyanotic, pedal edema - Neurological Exam Neurological exam: Present: alert, oriented X3, no focal deficits, strengths equal and symetr throughout. Absent: pronater drift, facial droop, speech deficit Additional comments: BUE, BLE tremmors 2/2 parkinsons - Skin Skin exam: Present: dry, intact Internal Medicine: Result - Labs CBC & Chem 7: 03/19/18 05:00 03/19/18 05:00 Labs: Short CBC 03/19/18 Range/Units 05:00 WBC 7.4 (4.3-11.1) K/mcL Hgb 13.9 (12.9-16.9) g/dL Hct 39.6 (37.5-50.1) % Plt Count 178 (140-400) K/mcL Neutrophils # 5.1 (1.6-8.9) K/mcL BMP 03/19/18 05:00 Sodium 137 Potassium 3.6 Chloride 106 Carbon Dioxide 26 BUN 12 Creatinine 0.99 Glucose 99 Calcium 9.6 - ABG Interpretation ABG results: PT/INR, D-dimer PT 31.0 Seconds (9.4-12.1) H 03/19/18 05:00 Consult Discharge Plan - Plan Referrals: Kenya Barber CNP [Primary Care Provider] -
--- NOTE | 2018-03-19 15:58 | Physician Discharge Referral ---
ExtendedCare Referral Info Transfer To: [facility] Provider in Charge after Transfer: PCP, Other (facility director) Institutional Level of Care: Intermediate - Diagnosis (1) Confusion Priority: Primary Status: Acute (2) Weakness generalized Priority: Secondary Status: Acute (3) Fall Priority: Secondary Status: Acute (4) Dementia Priority: Secondary Status: Acute (5) H/O deep venous thrombosis Priority: Secondary Status: Acute (6) Depression Priority: Secondary Status: Acute (7) Parkinson disease Priority: Secondary Status: Acute (8) DVT prophylaxis Priority: Secondary Status: Acute Prognosis: Fair Aware of Diagnosis: Patient, Family Aware of Prognosis: Patient, Family - Transfer Medications Home Medications: Carbidopa/Levodopa 25/100 [Sinemet 25/100] 1 tab PO BID 03/15/18 [History] Carbidopa/Levodopa [Carbidopa-Levodopa 25-100 Tab] 1.5 tab PO 1400 03/15/18 [ History] DULoxetine [Cymbalta] 30 mg PO BID 03/15/18 [History] Donepezil [Aricept] 10 mg PO HS 03/15/18 [History] Finasteride [Proscar] 5 mg PO DAILY 03/15/18 [History] PHENobarbital [Phenobarbital] 32.4 mg PO BID 03/15/18 [History] Tamsulosin HCl [Flomax] 0.4 mg PO DAILY 03/15/18 [History] Warfarin [Coumadin] 5 mg PO [id number] 03/15/18 [History] Warfarin [Coumadin] 7.5 mg PO SA 03/15/18 [History] Allergies/Adverse Reactions: 3 Allergy/AdvReac Type Severity Reaction Status Date / Time No Known Allergies Allergy Verified 07/31/17 17:40 - Respiratory Orders Smoking Cessation: Smoking cessation has been advised. For more information, call the [place] Tobacco Quit Line at 7-934-GHQE-NOW. - Advance Directives Code Status: Full Code - Mobility Orders Ambulate - Rehabiliation Orders Rehab Potential: Fair Rehab Orders: ROM Exercises, Evaluation for Physical Therapy, Evaluation for Occupational Therapy - Diet Orders Regular CERTIFICATION: I certify that the transfer of the above named patient to an Extended Care Facility is necessary for the continuing treatment of the diagnosis listed. The above information is true and accurate reflection of patient's current condition. Confidential - Redisclosure prohibited without a patient's written consent.
[2018-03-19 16:03] VITALS: BP 119/71
--- NOTE | 2018-03-19 16:16 | Discharge Summary ---
- NOTES TO OUTPATIENT PROVIDER Notes to Outpatient Provider: Admitted s/p falls and confusion. Thought to be progression of dementia with Parkinsons. No pending studies. DC to ECF Orders not resulted at time of discharge: Pending orders 03/20/18 04:00 INR/PT [Prothrombin Time INR] [COAG] AM 0400 Date of Encounter: 03/19/18 Time of Encounter: 15:59 - Discharge Diagnosis (1) Fall Priority: Primary Status: Acute Assessment and Plan: Presented with Confusion and s/p Unwitnessed falls prior to admission, likely due 2/2 unbalanced gait with Parkinson's disease, consider progression of disease as cause neurological workup unremarkable for acute process, neuro exam has remained non- focal. Has f/u with neurology- will evaluate in outpatient setting for progression of disease Lives at home with spouse who is unable to provide care with decline in mental status and functional mobility PT/OT seeing throughout stay and recommends SNF for rehab and possible long- term placement however, patient and spouse do not want long-term placement they only want short -term rehabilitation d/c to [facility] with nursing, aide assistance and PT/OT uneventful hospital course, patient mental status at baseline on day of D/C, able to participate in PT/OT no pending studies no medication additions or changes has f/u with neuro in April Qualifiers: Encounter type: initial encounter Qualified Code(s): W19.XXXA - Unspecified fall, initial encounter (2) Confusion Priority: Secondary Status: Acute (3) Weakness generalized Priority: Secondary Status: Acute Assessment and Plan: Generalized weakness secondary to Parkinson's Improving today See further assessment and plan above (4) Dementia Priority: Secondary Status: Acute Qualifiers: Dementia type: unspecified type Dementia behavioral disturbance: without behavioral disturbance Qualified Code(s): F03.90 - Unspecified dementia without behavioral disturbance (5) H/O deep venous thrombosis Priority: Secondary Status: Acute (6) Depression Priority: Secondary Status: Acute Qualifiers: Depression Type: unspecified Qualified Code(s): F32.9 - Major depressive disorder, single episode, unspecified (7) Parkinson disease Priority: Secondary Status: Acute (8) DVT prophylaxis Priority: Secondary Status: Acute Hospital course: Mr. Henning is a 82 year old male see assessment and plan for hospital course Discharge discussed with: patient, family, nurse, social work, case management - Time Spent with Patient Total time spent providing and/or coordinating discharge services: Less than 30 minutes - Discharge Medications Home Medications: Carbidopa/Levodopa 25/100 [Sinemet 25/100] 1 tab PO BID 03/15/18 [History] Carbidopa/Levodopa [Carbidopa-Levodopa 25-100 Tab] 1.5 tab PO 1400 03/15/18 [ History] DULoxetine [Cymbalta] 30 mg PO BID 03/15/18 [History] Donepezil [Aricept] 10 mg PO HS 03/15/18 [History] Finasteride [Proscar] 5 mg PO DAILY 03/15/18 [History] PHENobarbital [Phenobarbital] 32.4 mg PO BID 03/15/18 [History] Tamsulosin HCl [Flomax] 0.4 mg PO DAILY 03/15/18 [History] Warfarin [Coumadin] 5 mg PO [id number] 03/15/18 [History] Warfarin [Coumadin] 7.5 mg PO SA 03/15/18 [History] Allergies/Adverse Reactions: 3 Allergy/AdvReac Type Severity Reaction Status Date / Time No Known Allergies Allergy Verified 07/31/17 17:40 Date of admission: 03/15/18 16:14 Primary care physician: Kenya Barber CNP Consults: 03/15/18 16:34 Consult to Occupational Therapy [CONS] Routine Comment: Evaluate, develop and implement POC Reason for Consult: therapy/placement needs Does patient have active BEDREST order?: No Is patient medically & hemodynamically stable?: Yes Consult to Physical Therapy [CONS] Routine Comment: Evaluate, develop and implement POC Reason for Consult: PT eval Does patient have active BEDREST order?: No Is patient medically & hemodynamically stable?: Yes 03/15/18 18:08 Consult to Principal Planner [CONS] Routine Reason for SW Consult: dementia 03/16/18 08:54 Consult to Nurse Navigator [CONS] Routine Comment: Discharging clinician: Moreno Portillo Anticipated date of discharge: 03/19/18 - Constitutional Vitals: Temp Pulse Resp BP Pulse Ox 98.2 F 75 15 129/76 97 03/19/18 10:57 03/19/18 10:57 03/19/18 10:57 03/19/18 10:57 03/19/18 10:57 General appearance: Present: A&O X 2 - Head Head exam: Present: atraumatic, normocephalic - Eye Eye exam: Present: PERRL, conjuntiva pink, sclera anicteric Pupils: Present: PERRL - Neck Neck exam general surgery: Present: supple, trachea midline. Absent: lymphadenopathy - Respiratory Respiratory exam: Present: CTAB. Absent: accessory muscle use, rales, rhonchi, wheezes - Cardiovascular Cardiovascular exam: Present: RRR, +S1, +S2. Absent: diastolic murmur, gallop, rubs, systolic murmur - GI/Abdominal GI/Abdominal exam: Present: normal bowel sounds, soft, no peritoneal signs. Absent: distended, tenderness - Extremities Exam Extremities exam: Present: warm, radial pulses palpable and symmetrical. Absent : calf tenderness, cyanotic, pedal edema - Neurological Exam Neurological exam: Present: CN II-XII intact, oriented X3, no focal deficits. Absent: pronater drift, facial droop, speech deficit Additional comments: tremulous extremities with h/o parkinsons - Skin Skin exam: Present: dry, intact - Patient Status Disposition: Transfer SNF Condition: Fair Functional capacity at discharge: uses cane/walker Overall status at discharge: patient is progressing back to baseline - Discharge Instructions Instructions: Fall Prevention (DC) Follow Up With: Kenya Barber CNP [Primary Care Provider] - - Diet and Activity Activity: as per physical therapy Diet: advance to your usual diet
[2018-03-19] MEDS ORDERED: *HR* Warfarin 5 MG TABLET PO ONE (18:00)
== END 2018-03-19 18:38 ==
LOC: 3BNU 13:50 → EMEROO 13:50 → 3BNU 17:23
PROVIDERS: ADMIT Internal Medicine; ATTEND Internal Medicine

== ENCOUNTER 2019-02-12 09:13 | Inpatient (IN) ==
[2019-02-12] MEDS ORDERED: MORPHINE SUL Oral CONC 10 MG/0.5 ML ORAL.SYG PO PRN (12:06)
[2019-02-12] MEDS ORDERED: *HR* LORazepam Oral Conc 2 MG/ML PO PRN (12:06)
[2019-02-12] MEDS ORDERED: Bisacodyl 10 MG RECTAL SUPPOSITORY RC PRN (12:06)
[2019-02-12] MEDS ORDERED: Acetaminophen 325 MG TABLET PO PRN (13:14)
--- NOTE | 2019-02-12 13:19 | Pallative History & Physical ---
Date of Encounter: 02/12/19 Time of Encounter: 13:15 Assessment and Plan (1) Parkinson disease Current visit: No Status: Chronic (2) Generalized pain Current visit: Yes Status: Acute Will have acetaminophen available for mild pain. Has Roxanol also ordered as in his comfort pack at home. MOnitor. (3) Palliative care encounter Current visit: Yes Status: Acute (4) Goals of care, counseling/discussion Current visit: Yes Status: Acute No family with patient on admission. Will be returning home after 5 day respite stay. Appears to have no acute changes. (5) Dementia Current visit: No Status: Acute Qualifiers: Dementia type: unspecified type Dementia behavioral disturbance: without behavioral disturbance Qualified Code(s): F03.90 - Unspecified dementia without behavioral disturbance Internal Medicine - H&P: HPI Admitted From: Home Plans for Post Hospital Care: Hospice - Home History of present illness: Mr. Henning is a 83 year old male that presented for a respite stay for [facility]. He was admitted to hospice last month for end stage Parkinson's disease, with a h/o BPH, frequent UTI's, DVT. He is now wheelchair bound,, and needs assistance with meals. Resides with . Patients continuing medication for dementia and anticoagulation have been recently discontinued. Upon my visit, patient is pleasantly confused. Does c/o some low back pain, that he states is from "being stepped on a lot". Denies any shortness of breath. Hospice nurse reports BM after suppository given this am. Past Med Surg Social Fam HX - Past Medical History Medical history: DVT, dementia, seizures, other Additional medical history: Parkinsons Psychiatric history: no psych history - Past Surgical History Surgical History: non-contributory Additional surgical history: knee sx. back sx x3. shoulder - Social History Smoking Status: Never smoker Smokeless Tobacco Status: No Alcohol use: none Drug use: none - Family History Mother Living Status: Father Living Status: Internal Medicine - H&P: Meds Finasteride [Proscar] 5 mg PO DAILY 03/15/18 [History] PHENobarbital [Phenobarbital] 32.4 mg PO BID 03/15/18 [History] Quetiapine Fumarate [Seroquel] 25 mg PO DAILY 10/31/18 [History] Carbidopa/Levodopa 25/100 [Sinemet 25/100] 2 tab PO TID 11/02/18 [History] Tamsulosin HCl [Flomax] 0.4 mg PO DAILY 02/12/19 [History] Allergy/AdvReac Type Severity Reaction Status Date / Time No Known Allergies Allergy Verified 07/31/17 17:40 ROS unobtainable: due to mental status Palliative Care-Exam - Constitutional Vitals: Temp Pulse Resp BP Pulse Ox 97.4 F L 70 16 114/75 96 02/12/19 12:40 02/12/19 12:40 02/12/19 12:40 02/12/19 12:40 02/12/19 12:40 General appearance: Present: average body habitus, no acute distress - Head Head Exam: Present: normal inspection, normocephalic - Respiratory Respiratory exam: Present: CTAB - Cardiovascular Cardiovascular exam: Present: +S1, +S2 - GI/Abdominal Exam GI/Abdominal exam: Present: normal bowel sounds, soft - Extremities Exam Extremities exam: Present: normal capillary refill, normal inspection - Neurological Exam Neurological exam: Present: alert, strengths equal and symetr throughout Additional comments: Oriented to name only. - Skin Skin exam: Present: dry, warm Palliative Quality Palliative Quality: Screen for Code Status: Yes, Screen for Goals of Care: Yes, Screen for Pain: Yes, If Pain Regimen Started, Initiate Bowel Regimen: Yes, Screen for Nausea/Vomitting: Yes Code Status: 02/12/19 12:06 Resuscitation Status: Active [RES] Routine Comment: Resuscitation Status: DNR-Comfort Care
[2019-02-12] MEDS: Carbidopa/Levodopa 25/100 TABLET PO SCH ×2 (14:44→21:01)
[2019-02-12] MEDS: PHENobarbital 32.4 MG TABLET PO SCH (21:01)
[2019-02-13] MEDS: Carbidopa/Levodopa 25/100 TABLET PO SCH ×3 (08:54→20:18)
[2019-02-13] MEDS: PHENobarbital 32.4 MG TABLET PO SCH ×2 (08:54→20:18)
[2019-02-13] MEDS: Finasteride 5 MG TABLET PO SCH (08:55)
--- NOTE | 2019-02-13 09:30 | Palliative Progress Note ---
Date of Encounter: 02/13/19 Time of Encounter: 09:10 - Assessment and plan (1) Parkinson disease Current Visit: No Status: Chronic (2) Palliative care encounter Current Visit: Yes Status: Acute (3) Goals of care, counseling/discussion Current Visit: Yes Status: Acute Assessment and plan: No family present at bedside. Per hospice, will return home after 5 day Respite stay. (4) Generalized pain Current Visit: Yes Status: Acute Assessment and plan: C/o mild back pain. 0 doses of Tylenol administered since admission. Requested RN Cristina bring patient Tylenol for back pain. - Time Spent With Patient Total time spent is greater than 50% in coordination of care (as documented) at patient's floor/unit and/or counseling patient: - Subjective Interval history: Patient sitting up in bed, eating breakfast upon arrival. No family present. Patient is alert to person only. Reports mild back pain, but reports he typically "just eats and moves on with life." Patient has Tylenol ordered PRN, 0 doses administered since admission. Patient is pleasantly confused at this time. - Constitutional General appearance: Present: cooperative, no acute distress - Head Head exam: Present: atraumatic, normal inspection - Eye Eye exam: Present: normal appearance - ENT ENT exam: Present: mucous membranes moist, normal external ear exam - Neck Neck exam: Present: full ROM, normal inspection - Respiratory Respiratory exam: Present: CTAB. Absent: accessory muscle use, respiratory distress - Cardiovascular Cardiovascular exam: Present: RRR, +S1, +S2 - GI/Abdominal GI/Abdominal exam: Present: normal bowel sounds, soft. Absent: tenderness - Rectal Rectal exam: Present: deferred - exam: Present: normal inspection - Extremities Exam Extremities exam: Present: normal inspection. Absent: pedal edema - Back Exam Back exam: Present: normal inspection - Neurological Exam Neurological exam: Present: alert, altered, strengths equal and symetr throughout. Absent: oriented X3 - Psychiatric Psychiatric exam: Present: normal affect, normal mood - Skin Skin exam: Present: normal color. Absent: intact (Abraisions and bruising noted to bilateral forearms.) Palliative Quality Palliative Quality: Screen for Code Status: Yes, Screen for Goals of Care: Yes, Screen for Pain: Yes, If Pain Regimen Started, Initiate Bowel Regimen: Yes, Screen for Nausea/Vomitting: Yes Code Status: 02/12/19 12:06 Resuscitation Status: Active [RES] Routine Comment: Resuscitation Status: DNR-Comfort Care Palliative Scale - Palliative Performance Scale How ambulatory is this patient?: Mainly sit / lie What is patient's level of activity and evidence of disease?: Unable hobby/housework, Significant disease How much self-care assistance does patient require?: Considerable assistance required How much oral intake does the patient have?: Normal or reduced What is this patient's level of consciousness?: Full or confusion Palliative Performance Score: 60 % Consult Discharge Plan - Plan Referrals: NONE,PCP [Primary Care Provider] -
[2019-02-14] MEDS: PHENobarbital 32.4 MG TABLET PO SCH ×2 (09:27→21:27)
[2019-02-14] MEDS: Finasteride 5 MG TABLET PO SCH (09:27)
[2019-02-14] MEDS: Carbidopa/Levodopa 25/100 TABLET PO SCH ×3 (09:27→21:27)
--- NOTE | 2019-02-14 14:51 | Event Note ---
Date of Encounter: 02/14/19 Time of Encounter: 09:40 Patient today was awake, pleasantly confused. Appear comfortable and able to make needs known. No changes in management.
[2019-02-15] MEDS: PHENobarbital 32.4 MG TABLET PO SCH ×2 (09:49→20:03)
[2019-02-15] MEDS: Carbidopa/Levodopa 25/100 TABLET PO SCH ×3 (09:49→20:03)
[2019-02-15] MEDS: Finasteride 5 MG TABLET PO SCH (09:49)
--- NOTE | 2019-02-15 10:42 | Palliative Progress Note ---
Date of Encounter: 02/15/19 Time of Encounter: 09:30 - Assessment and plan (1) Parkinson disease Current Visit: No Status: Chronic (2) Palliative care encounter Current Visit: Yes Status: Acute Assessment and plan: Patient admitted for respite care (3) Goals of care, counseling/discussion Current Visit: Yes Status: Acute Assessment and plan: No family present, patient here for 5 nights respite. Called and reached Stephanie and updated on patient condition. endorsed that patient at home eats well and feeds himself, which he has not been doing here. Made aware that pt have been more withdrawn, not eating and sleeping most of the time. will come to visit in the afternoon. Pt's expected discharge will be Saturday 02/17, Stephanie is aware and agreeable with the plan. (4) Generalized pain Current Visit: Yes Status: Acute Assessment and plan: Patient not complaining of pain at this time. - Time Spent With Patient Total time spent is greater than 50% in coordination of care (as documented) at patient's floor/unit and/or counseling patient: 25 - 35 minutes - Subjective Interval history: Patient today was resting peacefully, opened eyes transiently to name calling, not interactive. Nurse was present at the bedside, states pt ate few poonful of apple sauce, otherwise oral intake is minimal. He denies any pain. - Constitutional Exam: in no acute distress - Neck Neck exam: Present: full ROM - Respiratory Respiratory exam: Present: CTAB. Absent: accessory muscle use - Cardiovascular Cardiovascular exam: Present: RRR, +S1, +S2 - GI/Abdominal GI/Abdominal exam: Present: diminished bowel sounds, soft. Absent: distended, tenderness - Neurological Exam Additional comments: sleeping, but responsive to verbal stimuli. moves all extremities spontaneously. Palliative Quality Palliative Quality: Screen for Code Status: Yes, Screen for Goals of Care: Yes, Screen for Pain: Yes, If Pain Regimen Started, Initiate Bowel Regimen: Yes, Screen for Nausea/Vomitting: Yes Code Status: 02/12/19 12:06 Resuscitation Status: Active [RES] Routine Comment: Resuscitation Status: DNR-Comfort Care Palliative Scale - Palliative Performance Scale How ambulatory is this patient?: Mainly sit / lie What is patient's level of activity and evidence of disease?: Unable hobby/housework, Significant disease How much self-care assistance does patient require?: Considerable assistance required How much oral intake does the patient have?: Normal or reduced What is this patient's level of consciousness?: Full or confusion Palliative Performance Score: 60 % Consult Discharge Plan - Plan Referrals: Kenya Barber CNP [Advanced Practice Nurse] -
[2019-02-16] MEDS: Finasteride 5 MG TABLET PO SCH (09:13)
[2019-02-16] MEDS: Carbidopa/Levodopa 25/100 TABLET PO SCH ×3 (09:13→20:07)
[2019-02-16] MEDS: PHENobarbital 32.4 MG TABLET PO SCH ×2 (09:13→20:07)
--- NOTE | 2019-02-16 12:36 | Palliative Progress Note ---
Date of Encounter: 02/16/19 Time of Encounter: 10:40 - Assessment and plan (1) Parkinson disease Current Visit: No Status: Chronic (2) Palliative care encounter Current Visit: Yes Status: Acute (3) Goals of care, counseling/discussion Current Visit: Yes Status: Acute Assessment and plan: No family present at bedside. Per hospice, will return home after 5 day Respite stay. Discharge planned for tomorrow. (4) Generalized pain Current Visit: Yes Status: Acute Assessment and plan: Denies back pain. 0 doses of Tylenol administered in the last 24 hours. Requested RN Cristina bring patient Tylenol for back pain. - Time Spent With Patient Total time spent is greater than 50% in coordination of care (as documented) at patient's floor/unit and/or counseling patient: less than 15 minutes - Subjective Interval history: Patient sitting up in bed, eating breakfast upon arrival. No family present. Patient is alert to person only. Denies pain, anxiety, nausea, and vomiting. - Constitutional General appearance: Present: cooperative, no acute distress - Head Head exam: Present: atraumatic, normal inspection - Eye Eye exam: Present: normal appearance. Absent: periorbital swelling, periorbital tenderness Pupils: Present: normal accommodation - ENT ENT exam: Present: mucous membranes dry, normal external ear exam - Neck Neck exam: Present: full ROM, normal inspection - Respiratory Respiratory exam: Present: CTAB. Absent: accessory muscle use, respiratory distress - Cardiovascular Cardiovascular exam: Present: +S1, +S2 - GI/Abdominal GI/Abdominal exam: Present: hypoactive bowel sounds, soft. Absent: tenderness - Rectal Rectal exam: Present: deferred - Extremities Exam Extremities exam: Present: normal inspection, pedal edema - Back Exam Back exam: Present: normal inspection - Neurological Exam Neurological exam: Present: altered, strengths equal and symetr throughout. Absent: oriented X3 - Psychiatric Psychiatric exam: Present: flat affect - Skin Skin exam: Present: intact, pallor, warm Palliative Quality Palliative Quality: Screen for Code Status: Yes, Screen for Goals of Care: Yes, Screen for Pain: Yes, If Pain Regimen Started, Initiate Bowel Regimen: Yes, Screen for Nausea/Vomitting: Yes Code Status: 02/12/19 12:06 Resuscitation Status: Active [RES] Routine Comment: Resuscitation Status: DNR-Comfort Care Palliative Scale - Palliative Performance Scale How ambulatory is this patient?: Mainly sit / lie What is patient's level of activity and evidence of disease?: Unable hobby/housework, Significant disease How much self-care assistance does patient require?: Considerable assistance required How much oral intake does the patient have?: Normal or reduced What is this patient's level of consciousness?: Full or confusion Palliative Performance Score: 60 % Consult Discharge Plan - Plan Referrals: Kenya Barber CNP [Advanced Practice Nurse] -
[2019-02-17 07:00] VITALS: BP 95/64
[2019-02-17] MEDS: Finasteride 5 MG TABLET PO SCH (09:19)
[2019-02-17] MEDS: PHENobarbital 32.4 MG TABLET PO SCH (09:19)
[2019-02-17] MEDS: Carbidopa/Levodopa 25/100 TABLET PO SCH (09:19)
--- NOTE | 2019-02-17 11:20 | Discharge Summary ---
Date of Encounter: 02/17/19 Time of Encounter: 11:00 - Discharge Diagnosis (1) Parkinson disease Priority: Primary Status: Chronic (2) Palliative care encounter Priority: Secondary Status: Acute (3) Goals of care, counseling/discussion Priority: Secondary Status: Acute (4) Generalized pain Priority: Secondary Status: Acute - Hospital Course Hospital course: Mr. Henning is a 83 year old male - Time Spent with Patient Total time spent providing and/or coordinating discharge services: Less than 30 minutes (Patient being discharged home at 3 pm per prior arrangement with [facility].) - Discharge Medications Prescriptions: No Action PHENobarbital [Phenobarbital] 64.8 mg PO DAILY Finasteride [Proscar] 5 mg PO DAILY Quetiapine Fumarate [Seroquel] 25 mg PO DAILY Carbidopa/Levodopa 25/100 [Sinemet 25/100] 2 tab PO TID Tamsulosin HCl [Flomax] 0.4 mg PO DAILY Acetaminophen [Tylenol 650mg SUPP] 650 mg RC Q6HR PRN PRN Reason: MILD PAIN/ FEVER Bisacodyl [Gentle Laxative] 10 mg RC DAILY PRN PRN Reason: Constipation Haloperidol Oral Conc [Haldol] 1 mg PO Q6H PRN PRN Reason: Agitation Hyoscyamine SL [Levsin SL] 0.125 mg SL Q4H PRN PRN Reason: Secretions LORazepam [Ativan] 0.5 mg PO Q6H PRN PRN Reason: Anxiety/AGITATION Morphine Oral CONC [Roxanol] 5 mg PO Q3H PRN PRN Reason: PAIN/SOB Prochlorperazine Maleate [Compazine] 10 mg PO Q6H PRN PRN Reason: NAUSEA/VOMITING Home Medications: Finasteride [Proscar] 5 mg PO DAILY 03/15/18 [History] PHENobarbital [Phenobarbital] 64.8 mg PO DAILY 03/15/18 [History] Quetiapine Fumarate [Seroquel] 25 mg PO DAILY 10/31/18 [History] Carbidopa/Levodopa 25/100 [Sinemet 25/100] 2 tab PO TID 11/02/18 [History] Acetaminophen [Tylenol 650mg SUPP] 650 mg RC Q6HR PRN 02/12/19 [History] Bisacodyl [Gentle Laxative] 10 mg RC DAILY PRN 02/12/19 [History] Haloperidol Oral Conc [Haldol] 1 mg PO Q6H PRN 02/12/19 [History] Hyoscyamine SL [Levsin SL] 0.125 mg SL Q4H PRN 02/12/19 [History] LORazepam [Ativan] 0.5 mg PO Q6H PRN 02/12/19 [History] Morphine Oral CONC [Roxanol] 5 mg PO Q3H PRN 02/12/19 [History] Prochlorperazine Maleate [Compazine] 10 mg PO Q6H PRN 02/12/19 [History] Tamsulosin HCl [Flomax] 0.4 mg PO DAILY 02/12/19 [History] Allergies/Adverse Reactions: Allergy/AdvReac Type Severity Reaction Status Date / Time No Known Allergies Allergy Verified 07/31/17 17:40 Internal Medicine - DS: Prov Date of admission: 02/12/19 12:29 Primary care physician: PCP NONE Admitting clinician: Yazmin Monsalve Attending physician on admission: Yazmin Monsalve Consults: 02/12/19 12:06 Consult to Palliative Care [CONS] Routine Comment: Consulting Provider: Palliative Care [place] Reason for Consult: Respite Call Completed: No Attending physician on discharge: Yazmin Monsalve Discharging clinician: Yazmin Monsalve Anticipated date of discharge: 02/17/19 Internal Medicine - DS: Exam - Constitutional Vitals: Vital Signs Temp Pulse Resp BP Pulse Ox 02/17/19 06:57 98.0 F 76 16 95/64 98 02/16/19 18:52 97.8 F 104 15 122/81 96 Intake and Output 02/16/19 02/17/19 02/17/19 23:59 07:59 15:59 Intake Total 100 / 100 60 / 60 Balance 100 / 100 60 / 60 Intake: Oral 100 / 100 60 / 60 Other: Meal Nourishment/Supplement Breakfast Percent of Meal Consumed 20% 5% # Urine Diapers 1 General appearance: cooperative, no acute distress - Head Head exam: Present: atraumatic, normal inspection - Eye Eye exam: Present: normal appearance. Absent: periorbital swelling, periorbital tenderness - ENT ENT exam: Present: mucous membranes dry, normal external ear exam - Neck Neck exam: Present: normal inspection - Respiratory Respiratory exam: Present: CTAB. Absent: accessory muscle use - Cardiovascular Cardiovascular exam: Present: RRR, +S1, +S2 - GI/Abdominal GI/Abdominal exam: Present: normal bowel sounds, soft. Absent: tenderness - Rectal Rectal exam: Present: deferred - Extremities Exam Extremities exam: Present: normal inspection. Absent: pedal edema - Neurological Exam Neurological exam: Present: alert, altered, strengths equal and symetr throughout (+3). Absent: oriented X3 - Psychiatric Psychiatric exam: Present: flat affect - Skin Skin exam: Present: dry, pallor, warm - Patient Status Disposition: Hospice - Home Condition: Fair Functional capacity at discharge: bed bound - Discharge Instructions Follow Up With: Kenya Barber HVAC ENGINEERING TECHNICIAN [Advanced Practice Nurse] - - Diet and Activity Activity: increase activity as tolerated Diet: advance to your usual diet - Attending Attestation Patient sitting up in bed upon arrival for assessment. Alert and oriented to person. Patient being discharged home from 5 day respite stay. Denies pain, anxiety, dyspnea, nausea, and vomiting.
== END 2019-02-17 15:44 | disposition hospice, home (50) | DRG 951 ==
LOC: 3ANU 12:29
PROVIDERS: ADMIT Internal Medicine Hospice and Palliative Medicine; ATTEND Internal Medicine Hospice and Palliative Medicine